=== PATIENT | female | born 1960 | race Caucasian/White ===

== ENCOUNTER → 2023-01-13 | Day surgery (SDC) | payer MEDICAID ==
[~2023-01-13] VITALS: Ht 152.4 cm; Wt 140.2 kg
[~2023-01-13] MED LIST: ACET-2708 PO; ACETAMINOPHEN 325MG TABLET PO PRN; ASPI-1497 PO; ATOR40TA70 PO; ATROPINE SULFATE 1MG/10ML SYR IV PRN; DIPHENHYDRAMINE 50MG/ML VIAL ONE; FENTANYL CITRATE/PF 50MCG/ML 2ML VIAL ONE; FURO40TA5 PO; HEPARIN 1000 UNITS/ML 10ML ONE; HYDRALAZINE 20MG/ML VIAL ONE; IODIXANOL 320MG/ML 100 ML BOTTLE IV ONE; LIDOCAINE HCL 1% 20ML VIAL (Pyxis) INJ ONE; LOSA50TA41 PO; METF-414 PO; METH-773 PO; METO-396 PO; MIDAZOLAM HCL 2 MG/2 ML VIAL ONE; ONDANSETRON HCL 4MG/2ML INJ IV PRN
== END | disposition home or self-care (01) ==
LOC: CCL 09:14
PROVIDERS: ATTEND Specialist
DX: I42.9 Cardiomyopathy, unspecified (principal); I25.10 Atherosclerotic heart disease of native coronary artery without angina pectoris; R07.9 Chest pain, unspecified; E66.01 Morbid (severe) obesity due to excess calories; I10 Essential (primary) hypertension; E78.5 Hyperlipidemia, unspecified; E11.9 Type 2 diabetes mellitus without complications; I48.91 Unspecified atrial fibrillation; G47.33 Obstructive sleep apnea (adult) (pediatric); Z79.899 Other long term (current) drug therapy; Z98.890 Other specified postprocedural states; Z79.82 Long term (current) use of aspirin; Z79.84 Long term (current) use of oral hypoglycemic drugs
CPT/HCPCS: 93458; 82962; C1893; C1769 ×3; J3010; Q9967; J1644 ×2; J0360; J3490; J2250; C1887; 99152; 99153; J1200; G0500